=== PATIENT | male | born 1955 | race Caucasian/White ===

== ENCOUNTER 2023-03-29 13:47 | Outpatient (RCR) | payer MEDICARE, MEDICAID, SELFPAY | END 2023-03-30 16:15 | disposition home or self-care (01) | LOC: OT 13:47 | PROVIDERS: PCP Family Medicine; Visit Provider Podiatrist Foot & Ankle Surgery | DX: I89.0 Lymphedema, not elsewhere classified (principal); M72.2 Plantar fascial fibromatosis | CPT/HCPCS: 97140; 97165; 97530 ==

== ENCOUNTER 2023-04-20 10:28 | Outpatient (OUT) | payer MEDICARE, MEDICAID, SELFPAY ==
--- NOTE | 2023-04-20 10:40 | MR_ITS ---
The [address] [address] Patient Name: ADRIAN ZAMORA MRN: [id number] date: 1955 Sex: M Assigned Patient Location: MRI Current Patient Location: MRI Accession/Order Number: [id number] Exam Date: 04/20/2023 11:00 Report Date: 04/20/2023 12:42 At the request of: BERNY SNIDER Procedure: MR ankle LT wo con MR ankle LT wo con CLINICAL HISTORY: Achilles tendinitis, left leg M76.62 COMPARISON: 08/26/2022 left ankle MRI. MR TECHNIQUE: Multiplanar multiecho MRI of the left ankle, hindfoot, midfoot is obtained without IV contrast with axial, sagittal, coronal images. T1 weighted and fluid sensitive images are included. FINDINGS: There is high-grade partial-thickness tearing of the proximal Achilles tendon which is incompletely included on the provided images especially on the axial images although partially included on sagittal. Low grade chronic partial thickness tearing and thickening of the distal Achilles tendon was present in August 2022 but the high-grade tear is new. The epicenter of the high-grade tearing begins approximately 7.7 cm above the upper margin of the calcaneus and extends at least 6 cm craniocaudal. Maximum AP dimension of the tendon is 23 mm. There are areas of complete discontinuity within the mid to posterior tendon by there is continuous anterior 1/3 margin of the tendon. The remaining distal tendon with more intermediate grade partial-thickness tearing and surrounding edema. The calcaneal attachment itself and underlying calcaneus unremarkable. Chronic and unchanged appearance to the plantar fascia with wavy thickening and irregularity consistent with chronic partial tearing. Osseous structures are intact with no fracture or bone marrow edema. Minimal degenerative change of the midfoot. Talar dome and tibial plafond are intact. Lateral ankle ligaments are intact. Syndesmotic ligaments are intact. Deltoid ligaments intact. Sinus Tarsi and tarsal tunnel are negative. Ankle flexor, extensor, peroneal tendons are intact where seen. 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 There is now interval high-grade partial tear of the proximal left Achilles tendon within the distal calf. Incompletely included on the exam. MRI examination of the entire calf may be indicated to completely characterize if considering surgical intervention. Additional chronic changes as noted otherwise similar to prior including chronic partial injury and/or wavy thickening of the plantar fascia. Electronically authenticated by: KATHI TALAVERA Date: 04/20/2023 12:42
== END 2023-04-20 10:29 | disposition home or self-care (01) ==
LOC: MRI 10:31
PROVIDERS: PCP Family Medicine; Visit Provider Podiatrist Foot & Ankle Surgery
DX: M76.62 Achilles tendinitis, left leg (principal); S86.012A Strain of left Achilles tendon, initial encounter; X58.XXXA Exposure to other specified factors, initial encounter
CPT/HCPCS: 73721

== ENCOUNTER 2023-04-29 08:24 | Outpatient (OUT) | payer MEDICARE, MEDICAID, SELFPAY ==
--- NOTE | 2023-04-29 08:26 | VEIN_ITS ---
Patient: ADRIAN ZAMORA Exam Date: 04/29/2023 : 1955 Gender:M Ordering : DR. BERNY ArnettPAdry Admission #: [id number] Family : Order #: [id number] CLICK HERE TO VIEW EXAM RADIOLOGY REPORT PROCEDURE: VC EXT VENOUS REFLUX MARISOL LMTD COMPARISON: None. INDICATIONS: I83.813 Pain due to varicose veins of bilateral leg veins TECHNIQUE: Duplex imaging of the lower extremity to assess the deep and superficial venous system for the presence of deep or superficial venous incompetence and to document the location and severity of disease. The study includes evaluation of the great saphenous vein (GSV), anterior accessory saphenous vein (AASV) and small saphenous vein (SSV). Patient scanned in reverse Trendelenburg and standing. FINDINGS: RIGHT LOWER EXTREMITY: Saphenofemoral Junction Reflux: YesNo 4.6mm sec GSV: Diam (mm) Reflux/ Time (sec) Proximal Thigh 3.8 No Mid Thigh 3.4 Yes 0.6 Distal Thigh 3.1 No Prox Calf 1.9 No Mid Calf 3.1 Saphenopopliteal Junction Reflux: 2.1mm No SSV: Proximal Calf 2.3 No Mid Calf 1.2 AASV: Proximal Thigh 3.6 No Mid Thigh 1.6 Yes 0.3 Distal Thigh Thrombi: No acute or chronic thrombus visualized Compressibility: Normal Flow: Normal Preforator: Dist/med calf 3.7mm with 0s reflux. Mid/med calf 3.3mm with 0s reflux. Tech Note: No incompetent veins visualized. Patent varicose vein dist/ant calf 2.1mm with 0s reflux. Patent varicose vein mid/med calf 2.0mm with 0s reflux. Patent varicose vein dist/med thigh 1.5mm with 0s reflux. LEFT LOWER EXTREMITY: Saphenofemoral Junction Reflux: Yes 8.0 mm 0.8 sec GSV: Diam (mm) Reflux/Time (sec) Proximal Thigh 5.7 No Mid Thigh 3.9 No Distal Thigh 3.4 Yes 0.5 Prox Calf 2.8 Yes 1.4 Mid Calf 3.5 Yes 0.9 Saphenopopliteal Junction Relux: 2.9 mm No SSV: Proximal Calf 2.3 Yes 0.5 Mid Calf 2.7 No AASV: Not present Proximal Thigh Mid Thigh Distal Thigh Thrombi: No acute or chronic thrombus visualized Compressibility: Normal Flow: Normal Web Retailer: Dist/med calf 3.0mm with 1.3s reflux. Tech Note: Incompetent GSV. Patent varicose vein dist/med calf 3.0 with 0.5s reflux. CONCLUSION: 1. Short segment of mildly incompetent, but not abnormally dilated left great saphenous vein. 2. Single borderline dilated and borderline incompetent dipper operator vein within distal medial left calf. Dictated by: Galileo Issa M.D. on 04/29/2023 at 09:23 Approved by: Galileo Issa M.D. on 04/29/2023 at 10:02
--- NOTE | 2023-04-29 08:26 | VEIN_ITS ---
Patient: ADRIAN ZAMORA Exam Date: 04/29/2023 : 1955 Gender:M Ordering : DR. BERNY SNIDER D.P.M. Admission #: [id number] Family : Order #: [id number] CLICK HERE TO VIEW EXAM RADIOLOGY REPORT PROCEDURE: [facility] - OFFICE VISIT INITIAL COMPARISON: None. PROGRESS NOTES: [age] year old male who presents with a 9 month history of distal lower extremity swelling and poor healing wound following surgery. The patient's left leg symptoms are worse than the right. There has been a progression of symptoms. This increases with prolonged standing. The patient describes minimal improvement with rest and elevation. The patient denies any signs and symptoms to suggest arterial ischemia. The patient describes a family history : Unknown family history-adopted. The patient has drinking and smoking history of occasional alcohol consumption; no tobacco use. Patient has a past medical history significant for plantar fasciitis and Achilles tendon injury. The patient denies a history of deep venous thrombus or pulmonary embolus. See separate history and physical for medication list. No prior treatment for varicose or spider veins. Current use of compression stockings. After review of nurse notes, history and physical exam I discussed at length the pathophysiology of venous hypertension and possible treatments, therapies and strategies available. We discussed at length the importance of elevating the lower extremities above the level of the heart, increased physical activity and compression stocking use. Ultrasound venous reflux study performed today was discussed at length with the patient. The report demonstrates a short segment of the left great saphenous vein which demonstrates mild reflux, but no abnormal dilation. Single borderline dilated and incompetent garden consultant vein within distal medial left calf. PHYSICAL EXAM: The right leg demonstrates no significant varicosities, no significant spider veins, no ulceration, no edema, no skin discoloration. The left leg demonstrates no significant varicosities, no significant spider veins, area of erythema within distal medial lower leg corresponding to patient's prior surgery and reoccurring infection/wound; no open ulceration, moderate distal lower extremity edema, no skin discoloration. Both thighs, legs and feet were symmetrically warm to the touch. Good posterior tibial and dorsalis pedis pulses were present bilaterally. VEIN/VC Facility EST Comprehensive IMPRESSION: 1. No significant venous insufficiency to account for patient's symptoms 2. No significant lower extremity varicose veins 3. Moderate left lower extremity subcutaneous edema 4. No flow significant arterial disease 5. C3, AP, , [place]: PLAN: 1. Continued use of compression stockings 2. Elevated legs and increased physical activity symptomatic relief 3. Follow-up with Dr. Nasim velásquez. 4. For the minimal amount of vein disease that the patient has, I do not feel that this is contributing significantly to the patient's symptoms that would warrant vein treatment at this time. Nurse notes, history and physical were reviewed and confirmed, see attached forms. The nurse was present throughout the physical exam and consultation Dictated by: Galileo Issa M.D. on 04/29/2023 at 10:02 Approved by: Galileo Issa M.D. on 04/29/2023 at 10:15
== END 2023-04-29 08:25 | disposition home or self-care (01) ==
LOC: VC 08:25
PROVIDERS: PCP Family Medicine; Visit Provider Podiatrist Foot & Ankle Surgery
DX: I83.813 Varicose veins of bilateral lower extremities with pain (principal)
CPT/HCPCS: 93970; G0463